=== PATIENT | male | born 1970 | race Caucasian/White ===

== ENCOUNTER 2023-04-23 23:05 | Observation (INO) ==
[2023-04-23 23:57] LABS: ABS Basophils 0.1 10^3/uL (0.0-0.1); ABS Eosinophils 0.2 10^3/uL (0.0-0.5); ABS Lymphocytes 3.1 10^3/uL (1.0-4.8); ABS Monocytes 0.4 10^3/uL (0.0-1.1); ABS Nucleated RBC 0.01 10^3/ul; Eosinophil % 3.1 %; Hematocrit 39.3 % (38-53); Hemoglobin 13.5 g/dL (13.2-16.3); Mean Corpuscular Hemoglobin 33.6 pg (27-33); Mean Corpuscular Hgb Conc 34.5 g/dL (31-36); Mean Corpuscular Volume 97.5 fL (80-97); Mean Platelet Volume 6.2 fL (7.5-11.2); Nucleated Red Blood Cells % 0.1 %/100WBC (0.0-0.8); Platelet Count 327 10^3/uL (150-450); Red Blood Count 4.03 10^6/uL (4.06-5.63); Red Cell Distribution Width 13.6 % (12-17); White Blood Count 6.7 10^3/uL (3.6-10.2)
[2023-04-24] MEDS ORDERED: Lactated Ringers 1000 ml BAG 1,000 ML IV ONE (00:04)
[2023-04-24 00:16] LABS: Activated Partial Thrombo Time 32.9 seconds (26.0-38.0); INR 0.84 (0.83-1.13)
[2023-04-24 00:22] LABS: Albumin 4.1 g/dL (3.2-5.2); C Reactive Protein 8.64 mg/L (<8.01); Calcium 8.9 mg/dL (8.6-10.3); Creatinine, Serum 0.55 mg/dL (0.67-1.17); Globulin 4.3 g/dL (2-4); Potassium 3.7 mmol/L (3.5-5.0); Total Bilirubin 0.2 mg/dL (0.2-1.0); Total Protein 8.4 g/dL (6.4-8.9)
[2023-04-24 00:30] LABS: Urine Appearance Clear; Urine Bilirubin Negative (Negative); Urine Blood Negative (Negative); Urine Color Straw; Urine Glucose Negative (Negative); Urine Ketones Negative (Negative); Urine Nitrite Negative (Negative); Urine Protein Negative (Negative); Urine Specific Gravity 1.003 (1.002-1.030); Urine Urobilinogen Negative (Negative)
[2023-04-24] MEDS ORDERED: Senna TAB 8.6 mg TAB PO PRN (00:38)
[2023-04-24] MEDS ORDERED: Polyethylene Glycol 3350 17 GM PACKET PO PRN (00:39)
[2023-04-24] MEDS ORDERED: LORazepam 2 mg VIAL 1 ml IV PUSH PRN (01:48)
[2023-04-24] MEDS ORDERED: Lorazepam PYXIS KEY PRN (01:48)
[2023-04-24] MEDS ORDERED: Enoxaparin 40 MG/0.4 ML SYR SUBCUT SCH (02:00)
[2023-04-24] MEDS ORDERED: Piperacillin/Tazobac 3.375 BAG 3.375 GM/100 ML BAG IV ONE (02:08)
[2023-04-24] MEDS ORDERED: Thiamine 100 MG/ML 2 ml VIAL 100 MG, Folic Acid IV 1 MG, Multiple Vitamin IV ADULT 10 M... IV ONE (03:00)
[2023-04-24] MEDS ORDERED: Zosyn per Pharmacy NOTE FOLLOW UP SCH (03:00)
[2023-04-24 04:25] LABS: Erythrocyte Sed Rate 54 mm/Hr (0-19)
[2023-04-24 07:13] LABS: Calcium 8.2 mg/dL (8.6-10.3); Magnesium 1.6 mg/dL (1.9-2.7); Potassium 4.2 mmol/L (3.5-5.0)
[2023-04-24 07:18] LABS: Creatinine, Serum 0.57 mg/dL (0.67-1.17); eGFR CKD-EPI 118.7 (>60)
[2023-04-24] MEDS ORDERED: ZOSYN 3.375 GM Q8H per EXTENDED INFUSION IV SCH (07:30)
[2023-04-24] MEDS ORDERED: Magnesium Sulfate 2 gm BAG 2 GM/50 ML BAG IVPB ONE ×2 (07:54→08:42)
[2023-04-24 09:59] VITALS: BP 105/66
== END 2023-04-24 11:00 | disposition home or self-care (01) ==
LOC: ED 23:05 → EDHOLD 23:05 → SUATTDRO 04-24 00:04 → MED 04-24 01:36
PROVIDERS: ADMIT Student in an Organized Health Care Education/Training Program; ATTEND Internal Medicine